=== PATIENT | male | born 1985 | race Caucasian/White ===

== ENCOUNTER 2016-06-13 08:35 | Emergency (ER) | payer SELFPAY ==
[~2016-06-13] VITALS: Ht 177.8 cm; Wt 77.1 kg
[2016-06-13 08:35] VITALS: BP 138/88; PULSE 107; RESP 16; TEMP 97.5; O2SAT 97
[2016-06-13 08:55] VITALS: BP 134/84; PULSE 97; RESP 16; TEMP 97.5; O2SAT 97
== END 2016-06-13 08:55 ==
LOC: SED 08:35
DX: Z02.89 Encounter for other administrative examinations (principal); F41.9 Anxiety disorder, unspecified; R03.0 Elevated blood-pressure reading, without diagnosis of hypertension
CPT/HCPCS: 99283

== ENCOUNTER 2018-12-28 20:39 | Emergency (ER) | payer SELFPAY ==
[~2018-12-28] VITALS: Ht 160 cm; Wt 72.6 kg
[2018-12-28 20:41] VITALS: BP_SYST 110
--- NOTE | 2018-12-28 20:41 | NUR ---
Patient to ER bed H1 to gown for evaluation. Side rails up.
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
--- NOTE | 2018-12-28 20:45 | NUR ---
Dr Govea at bedside examining patient
[2018-12-28 20:57] VITALS: BP_SYST 110
--- NOTE | 2018-12-28 20:57 | NUR ---
Patient given written and verbal discharge instructions and verbalizes understanding. ER MD discussed with patient the results and treatment provided. Patient in stable condition. ID arm band removed. Rx of zero given. Patient educated on pain management and to follow up with PMD. Pain Scale 0/10. Opportunity for questions provided and answered. Medication side effect fact sheet provided.
== END 2018-12-28 20:57 ==
LOC: SED 20:39
DX: F41.9 Anxiety disorder, unspecified (principal); R03.0 Elevated blood-pressure reading, without diagnosis of hypertension
CPT/HCPCS: 99283